=== PATIENT | female | born 1945 | race Caucasian/White ===

== ENCOUNTER 2023-12-09 08:08 | Emergency (ER) | payer MEDICARE, SELFPAY ==
--- NOTE | ~2023-12-09 | XR_ITS ---
EXAMINATION: XR CHEST 1 VIEW CLINICAL INFORMATION: sob COMPARISON: None TECHNIQUE: Single portable frontal view. Tubes and lines: None Lungs and pleura: There is pulmonary vascular congestion, mild interstitial opacification probably mild interstitial edema, cannot rule out superimposed mild infiltrates. Bilateral subpulmonic pleural effusions. Heart and mediastinum: Heart and mediastinum are widely exaggerated by AP technique.. Bones/soft tissue: Soft tissue obscuration around left humeral head suggesting calcific tendinosis. XR/XR chest 1V IMPRESSION: 1. Congestive heart failure. 2. Bilateral subpulmonic pleural effusions. 3. Mild interstitial opacification probably mild interstitial edema. 4. Soft tissue obscuration around left humeral head suggesting calcific tendinosis. Electronically signed by: Yvrose Stroud MD 12/09/2023 09:24 AM EDT
[2023-12-09 08:15] VITALS: BP 115/63; BP 128/49; PULSE 68; PULSE 76; RESP 16; TEMP 36.5; O2SAT 91; O2SAT 96; BMI 28.7
--- NOTE | 2023-12-09 08:15 | ED_ITS ---
HPI - SOB/Dyspnea General Chief Complaint: Dyspnea Stated Complaint: DIFF BREATHING Time Seen by Provider: 12/09/23 08:14 Source: patient, family, EMS, RN notes reviewed and old records reviewed Mode of arrival: EMS Limitations: other History of Present Illness ED Provider: Carolyn Sigala PA-C HPI Narrative: 78-year-old Cambodian speaking female with a past medical history of asthma, anemia, RA, HTN, HLD, hypothyroid, osteoporosis, hypomagnesemia, presenting to the ED via EMS complaining of increasing SOB, dry cough, wheezing, and chest discomfort x few days. Was evaluated at urgent care 4 days ago, prescribed prednisone x5 days without relief. Reports compliance with inhalers. Denies recent travel, pedal edema, fever, sick contacts Related Data Allergies Allergy/AdvReac Type Severity Reaction Status Date / Time aspirin [ASPIRIN] Allergy Unknown UNKNOWN Verified 12/09/23 08:19 atorvastatin [From LIPITOR] Allergy Unknown UNKNOWN Verified 12/09/23 08:19 Review of Systems 2 Review of Systems: Yes all other systems are reviewed and are negative Constitutional: Constitutional: Reports as per HPI [facility] Past Medical History Attestation statement: The following information was validated with the patient. Source: old records reviewed Social History Social History Advance Directives: No Advance Directives Information Provided: Yes Physical Exam 2 Vital Signs: Vital Signs: Last Vital Signs Temp 98.4 F 12/09/23 10:53 Pulse 73 12/09/23 11:32 Resp 14 12/09/23 11:32 BP 105/37 L 12/09/23 11:32 Pulse Ox 90 L 12/09/23 11:32 O2 Del Method Nasal Cannula 12/09/23 11:32 BMI result Body Mass Index 32.4 Const: General: cooperative, healthy appearing and no acute distress O rientation/consciousness: patient oriented x3 Limitations: no limitations HEENT: Head: Yes normal to inspection and Yes atraumatic Ears: hearing grossly normal bilaterally General nose exam: Normal external nose present Face and sinus: Yes normal facial exam Eyes: General: appearance normal, both eyes and all related structures EOM: EOMs intact bilaterally Neck: Neck: Yes normal visual inspection and Yes no meningeal signs Resp: Effort & Inspection: no respiratory distress and tachypneic A uscultation: wheezes expiratory wheezes and lower bilaterally and diminished lung sounds (Shallow breath sounds) diffuse Cardio: Rate: regular rate Heart sounds: S1 normal heart sound present and S2 normal heart sound present GI: Inspection: Yes normal to inspection Palpation (GI): Soft to palpation, nontender, no guarding and not rigid Skin: Rashes: no rashes Wounds: no wounds Neuro: General: patient oriented x3, tone normal and no meningeal signs C ranial nerves: Yes CN's II-XII intact bilaterally Gait exam (Neuro): Normal gait present Extrem: Other: Mild LE nonpitting edema Course Course Course Narrative: 954--XR chest 1V IMPRESSION: 1. Congestive heart failure. 2. Bilateral subpulmonic pleural effusions. 3. Mild interstitial opacification probably mild interstitial edema. 4. Soft tissue obscuration around left humeral head suggesting calcific tendinosis. > new onset CHF. Will give 40 mg IV Lasix -1110--mild anemia, no priors to compare. BUN elevated to 61. AST/ALT mildly elevated. BNP 1780, and troponin elevated 10,221.7 > Cardiology, Dr. Coppola consulted > plan to initiate patient on heparin drip, statin, nitro paste if BP allows, and transfer to [facility]. Holding Aspirin as patient with allergy of shortness of breath. -patient denies active chest pain at this time -1128--repeat EKG mostly unchanged from prior. Per Cardiology patient lost R- waves, could have LAD territory infarct. > spoke with cardiology at [facility], case discussed, concern for possible ?myocarditis. Transfer accepted, patient will be accepted to telemetry. -1149--patient mildly hypoxic to 89% on RA > 2 L NC applied, satting 95%. Nitro paste held as blood pressure soft Medications Administered Generic Name Dose Route Start Last Admin Trade Name Freq PRN Reason Stop Dose Admin Heparin Sodium/Sodium Chloride 25,000 unit in 250 mls @ 0 mls/hr 12/09/23 11:30 12/09/23 11:46 Heparin Sodium,Porcine/1/2ns IVCONT 12 units/kg/hr .Q0M LOIS 9.64 mls/hr Administration Protocol Per Protocol Discontinued Medications Generic Name Dose Route Start Last Admin Trade Name Freq PRN Reason Stop Dose Admin Albuterol/Ipratropium 3 ml 12/09/23 08:51 12/09/23 08:53 Albuterol/Iprat 2.5/0.5mg 3 Ml Ampul.Neb INHALE 12/09/23 08:52 3 ml ONCE ONE Administration Atorvastatin Calcium 80 mg 12/09/23 11:20 12/09/23 11:36 Atorvastatin Calcium 80 Mg Tablet PO 12/09/23 11:21 80 mg ONCE ONE Administration Furosemide 40 mg 12/09/23 09:55 12/09/23 10:10 Furosemide 40 Mg/4 Ml Vial IVPUSH 12/09/23 09:56 40 mg STAT STA Administration Protocol Heparin Sodium (Porcine) 4,000 unit 12/09/23 11:19 12/09/23 11:35 Heparin Sodium,Porcine 5,000 Unit/Ml Vial IVPUSH 12/09/23 11:20 4,000 unit ONCE ONE Administration Methylprednisolone Sodium Succinate 60 mg 12/09/23 08:22 12/09/23 09:13 Methylprednisolone Sod Succ 125 Mg/2 Ml Vial IVPUSH 12/09/23 08:23 60 mg ONCE ONE Administration Nitroglycerin 0.5 inch 12/09/23 11:32 12/09/23 11:51 Nitroglycerin 2 % Oint 1 Gm Packet TRANSDERMA 12/09/23 11:33 Not Given ONCE ONE Medical Decision Making Medical Decision Making [facility] Narrative: 78-year-old Camb[place]ian speaking female with a past medical history of asthma, anemia, RA, HTN, HLD, hypothyroid, osteoporosis, hypomagnesemia, presenting to the ED via EMS complaining of increasing SOB, dry cough, wheezing, and chest discomfort x few days. On exam vital signs stable, tachypneic, talking in short sentences, bibasilar expiratory wheeze and diminished lung sounds appreciated throughout. Bilateral LE nonpitting edema. Concern for asthma exacerbation vs pneumonia vs viral illness vs ACS. Rule out CHF. Lower suspicion for DVT/PE or dissection Plan: EKG, labs, CXR, viral studies, ED bronch protocol, IV Solu-Medrol, anticipated admission Please refer to course for remaining clinical decision making, interpretation of labs/imaging results, and discussions with consultants and/or family members. Differential Diagnosis Differential Diagnoses: The differential diagnosis associated with the presentation includes As above Admission/Observation Consideration of admission/observation: Escalation of care including admission/observation considered Lab Data [facility] Lab Attestation statement: I reviewed the patient's lab results. 12/09/23 09:45 12/09/23 09:44 Labs: Lab Results 12/09/23 12/09/23 12/09/23 Range/Units 09:44 09:45 11:23 WBC 11.2 H (4.8-10.8) X10*3/uL RBC 3.40 L (4.20-5.50) X10*6/uL Hgb 10.9 L (12.0-16.0) g/dl Hct 31.1 L (37.0-47.0) % MCV 91.5 (80.0-98.0) fL MCH 32.1 (27.0-33.0) pg MCHC 35.0 (31.0-35.0) g/dl RDW 13.5 (11.0-16.0) % Plt Count 243 (160-400) X10*3/uL MPV 10.6 (9.4-12.3) fL Immature Gran % (Auto) 0.7 H (0.0-0.4) % Neut % (Auto) 78.2 H (45-73) % Lymph % (Auto) 12.6 L (20-40) % [place] % (Auto) 8.3 (2-11) % Eos % (Auto) 0.1 (0-4) % Baso % (Auto) 0.1 (0-2) % Lymph # (Auto) 1.4 (1.2-4.9) X10*3/uL [place] # (Auto) 0.9 (0.1-1.2) X10*3/uL Eos # (Auto) 0.0 (0.0-0.4) X10*3/uL Baso # (Auto) 0.0 (0.0-0.2) X10*3/uL Abs Immat Gran (auto) 0.08 H (0.00-0.03) X10*3/uL Absolute Neuts (auto) 8.8 H (2.0-8.3) x10*3/uL Absolute Nucleated RBC 0.000 (0.0-0.012) X10*3/uL Nucleated RBC % (auto) 0.0 (0.0-0.2) /100WBC PT Cancelled INR Cancelled aPTT Heparin Protocol Cancelled Sodium 132 L (135-145) mmol/L Potassium 4.5 (3.3-5.1) mmol/L Chloride 108 (96-108) mmol/L Carbon Dioxide 14 L (22-29) mmol/L Anion Gap 15 (12-20) BUN 61 H (9-16) mg/dL Creatinine 1.33 (0.5-1.4) mg/dL Estim Creat Clear Calc 32.2 Estimated GFR 39 Random Glucose 122 H (60-115) mg/dL Calcium 9.2 (8.4-10.2) mg/dL Magnesium 2.7 H (1.6-2.6) mg/dL Total Bilirubin 0.3 (0.0-1.0) mg/dL Direct Bilirubin 0.1 (0.0-0.5) mg/dL AST 50 H (5-31) U/L ALT 84 H (0-31) U/L Alkaline Phosphatase 69 (39-117) U/L Troponin I High Sens 53238.7 H* (<3.5-17.0) ng/L B-Natriuretic Peptide 1780 H (<100) pg/mL Total Protein 6.8 (6.5-8.0) g/dL Albumin 3.6 (3.5-5.0) g/dL Influenza Type A (PCR) NEGATIVE (Negative) Influenza Type B (PCR) NEGATIVE (Negative) RSV RNA Qual (PCR) NEGATIVE (Negative) SARS-CoV-2 RNA (RT-PCR) NEGATIVE (Negative) Independent Interpretation I performed an independent interpretation of an: EKG and Plain X-Ray Radiology Impression Discussion of test interpretation with radiology: I have reviewed the radiologist's reading. Independent Historian Clinical information obtained from an independent historian. History obtained from or confirmed by: EMS and Other (Daughter) External Record Review External record reviewed: Inpatient record, Office record, Outpatient record, Prior outpatient labs, Prior outpatient radiology, Primary care record and Outside ED record Tests considered The following testing was considered but not selected: As above Chronic Conditions Patient?s care impacted by: Other (Asthma) Critical Care Time Critical Care Time Critical Care Time: Yes Total Critical Care Time: 60 Attestation: I have personally provided critical care time exclusive of time spent on separately billable procedures. Time includes review of lab data, radiology results, discussion with consultants, and monitoring for potential decompensation. Intervention performed as documented. Discharge Plan Discharge Clinical Impression: Non-ST elevation MT (NSTEMI), New onset of congestive heart failure Patient Disposition: [facility] Transfer Details: [facility] Print Language: Cambodian
--- NOTE | 2023-12-09 08:22 | ECG_ITS ---
Test Reason : SOB/CP Blood Pressure : / mmHG Vent. Rate : 071 BPM Atrial Rate : 071 BPM P-R Int : 156 ms QRS Dur : 112 ms QT Int : 436 ms P-R-T Axes : 036 019 149 degrees QTc Int : 473 ms Poor data quality Normal sinus rhythm Septal infarct , age undetermined ST & T wave abnormality, consider lateral ischemia Intra-ventricular conduction delay Abnormal ECG No previous ECGs available Please repeat EKG Referred By: Carolyn Sigala Electronically Signed By:AVERY AN MD
[2023-12-09] MEDS: Albuterol/Iprat 2.5/0.5MG 3 ML AMPUL.NEB INHALE (08:53)
[2023-12-09 09:00] VITALS: PULSE 87; RESP 14; O2SAT 93
[2023-12-09] MEDS: methylPREDNISolone Sod Succ 125 MG/2 ML VIAL 60 MG IVPUSH (09:13)
[2023-12-09 09:52] LABS: MANUAL DIFF FLAG NO
[2023-12-09 10:10] VITALS: BP 124/67
[2023-12-09] MEDS: Furosemide 40 MG/4 ML VIAL IVPUSH (10:10)
[2023-12-09 10:13] LABS: Alanine Aminotransferase 84 U/L (0-31); Albumin Level 3.6 g/dL (3.5-5.0); Alkaline Phosphatase 69 U/L (39-117); Anion Gap 15 (12-20); Aspartate Amino Transferase 50 U/L (5-31); Bilirubin Direct 0.1 mg/dL (0.0-0.5); Bilirubin Total 0.3 mg/dL (0.0-1.0); Blood Urea Nitrogen 61 mg/dL (9-16); Calcium 9.2 mg/dL (8.4-10.2); Carbon Dioxide 14 mmol/L (22-29); Chloride 108 mmol/L (96-108); Creatinine Clr Calc Pharmacy 32.2; Estimated Glomerular Filt Rate 39; Glucose Random 122 mg/dL (60-115); Magnesium 2.7 mg/dL (1.6-2.6); Potassium 4.5 mmol/L (3.3-5.1); Sodium 132 mmol/L (135-145); Total Protein 6.8 g/dL (6.5-8.0)
[2023-12-09 10:14] LABS: Basophils Percent Auto 0.1 % (0-2); Eosinophils Percent Auto 0.1 % (0-4); Hematocrit 31.1 % (37.0-47.0); Hemoglobin 10.9 g/dl (12.0-16.0); Imm Gran Abs Auto 0.08 X10*3/uL (0.00-0.03); Imm Gran Pct Auto 0.7 % (0.0-0.4); Lymphocytes Absolute Auto 1.4 X10*3/uL (1.2-4.9); Lymphocytes Percent Auto 12.6 % (20-40); Mean Corpuscular Hemoglobin 32.1 pg (27.0-33.0); Mean Corpuscular Volume 91.5 fL (80.0-98.0); Mean Platelet Volume 10.6 fL (9.4-12.3); Monocytes Absolute Auto 0.9 X10*3/uL (0.1-1.2); Monocytes Percent Auto 8.3 % (2-11); Neutrophils Absolute Auto 8.8 x10*3/uL (2.0-8.3); Neutrophils Percent Auto 78.2 % (45-73); Platelet Count 243 X10*3/uL (160-400); Red Cell Distribution Width 13.5 % (11.0-16.0); White Blood Count 11.2 X10*3/uL (4.8-10.8)
[2023-12-09 10:16] LABS: B Type Natriuretic Peptide 1780 pg/mL (<100)
[2023-12-09 10:38] LABS: Influenza A PCR NEGATIVE (Negative); Influenza B PCR NEGATIVE (Negative); Resp Syncy Virus RNA Qual PCR NEGATIVE (Negative); SARS COV2 PCR INHOUSE NEGATIVE (Negative)
[2023-12-09 10:53] VITALS: BP 118/34; PULSE 70; RESP 18; TEMP 36.9; O2SAT 93
[2023-12-09 11:03] LABS: Troponin-I High Sensitivity 10221.7 ng/L (<3.5-17.0)
[2023-12-09 11:09] VITALS: BMI 32.4
--- NOTE | 2023-12-09 11:18 | ECG_ITS ---
Test Reason : REPEAT ELEVATED TROP Blood Pressure : / mmHG Vent. Rate : 074 BPM Atrial Rate : 074 BPM P-R Int : 166 ms QRS Dur : 120 ms QT Int : 434 ms P-R-T Axes : 039 010 154 degrees QTc Int : 481 ms Normal sinus rhythm Low voltage QRS Septal infarct (cited on or before 09-DEC-2023) Possible Lateral infarct , age undetermined Abnormal ECG When compared with ECG of 09-DEC-2023 08:22, No significant change was found Referred By: Carolyn Sigala Electronically Signed By:AVERY AN MD
[2023-12-09 11:32] VITALS: BP 105/37; PULSE 73; RESP 14; O2SAT 90
--- NOTE | 2023-12-09 11:34 | PC.NURSE ---
patient placed on 2l NC sats 88-90% on room air, with audible wheezing
[2023-12-09] MEDS: Heparin Sodium,Porcine 5,000 UNIT/ML VIAL 4000 UNIT IVPUSH (11:35)
[2023-12-09] MEDS: Atorvastatin Calcium 80 MG TABLET PO (11:36)
[2023-12-09] MEDS: Heparin Sodium,Porcine/1/2NS 25,000 UNIT/250 ML IV.SOLN 9.64 UNIT IVCONT (11:46)
[2023-12-09 12:04] LABS: Prothrombin Time 11.5 SEC (10.9-12.4)
[2023-12-09 12:06] LABS: PTT Heparin Drip 27.4 SEC (53-77.9)
[2023-12-09] MEDS: Clopidogrel Bisulfate 300 MG TABLET PO (12:20)
[2023-12-09 12:54] VITALS: BP 113/87; PULSE 68; RESP 16; TEMP 36.4; O2SAT 97
--- NOTE | 2023-12-09 14:23 | PC.NURSE ---
report given to RN on MM5 and guard driver for tx.
== END 2023-12-09 14:25 | disposition short-term general hospital (02) ==
PROVIDERS: Physician Assistant; Emergency Provider Emergency Medicine; PCP Internal Medicine
DX: I21.4 Non-ST elevation (NSTEMI) myocardial infarction (principal); I11.0 Hypertensive heart disease with heart failure; I50.9 Heart failure, unspecified; R09.02 Hypoxemia; R06.02 Shortness of breath; R60.0 Localized edema; J45.909 Unspecified asthma, uncomplicated; R05.9 Cough, unspecified; E78.5 Hyperlipidemia, unspecified; E03.9 Hypothyroidism, unspecified; Z03.818 Encounter for observation for suspected exposure to other biological agents ruled out
CPT/HCPCS: 0241U; 71045; 80048; 80076; 83735; 83880; 84484; 85025; 85610; 85730; 93005; 94640; 96374; 96375; 96376; 99285; J1644; J1940; J2919

== ENCOUNTER → 2023-12-09 08:22 | Outpatient (BNV) | payer MEDICARE, SELFPAY | PROVIDERS: Emergency Provider Emergency Medicine; PCP Internal Medicine; Visit Provider Internal Medicine Cardiovascular Disease | DX: R94.31 Abnormal electrocardiogram [ECG] [EKG] (principal) | CPT/HCPCS: 93010 ==